=== PATIENT | female | born 1945 | race Caucasian/White ===

== ENCOUNTER 2023-09-29 09:52 | Outpatient (CLI) | payer MEDICARE, SELFPAY ==
[2023-09-29 10:29] LABS: Appearance Urine Cloudy (Clear); Bacteria Urine 4+ /hpf; Bilirubin Urine Negative (Negative); Blood Urine 2+ (Negative); Color Urine Yellow (Yellow); Glucose Urine UA Negative (Negative); Ketones Urine Negative (Negative); Leukocyte Esterase Ur 2+ LEU/UL (Negative); Nitrate Urine Positive (Negative); Non Pathogenic Casts 0-2; Protein Urine Negative (Negative); RBC Urine 51-100 /hpf (0-2); Specific Grav Ur 1.014 (1.001-1.035); Squamous Epithelial Cell Urine Few /hpf (Few); Urobilinogen Urine 0.2 mg/dL (<2.0); WBC Urine 51-100 /hpf
[2023-09-29 10:31] LABS: Add Urine Microscopic? YES
== END 2023-09-29 09:53 | disposition home or self-care (01) ==
PROVIDERS: PCP Family Medicine Sports Medicine; Visit Provider Registered Nurse
DX: R39.9 Unspecified symptoms and signs involving the genitourinary system (principal)
CPT/HCPCS: 81001; 87077; 87086; 87186

== ENCOUNTER 2024-04-15 21:36 | Emergency (ER) | payer MEDICARE, SELFPAY ==
[2024-04-15 21:38] VITALS: BP 165/91; PULSE 65; RESP 18; TEMP 36.6; O2SAT 95
--- NOTE | 2024-04-16 00:11 | PC.NURSE ---
patient not found in waiting area or outside when called for a room at [id number]
== END 2024-04-16 00:46 | disposition left against medical advice (07) ==
LOC: ANHED 04-16 00:32
PROVIDERS: PCP Family Medicine Sports Medicine
DX: S61.210A Laceration without foreign body of right index finger without damage to nail, initial encounter (principal)
CPT/HCPCS: 99199